=== PATIENT | female | born 1970 | race Caucasian/White ===

== ENCOUNTER → 2016-08-02 | Outpatient (CLI) | payer OTHER | LOC: MC.RAD 13:51 | DX: Z12.31 Encounter for screening mammogram for malignant neoplasm of breast (principal); N63 Unspecified lump in breast; N64.89 Other specified disorders of breast ==

== ENCOUNTER → 2016-08-11 | Outpatient (CLI) | payer OTHER | LOC: MC.RAD 13:49 | DX: N63 Unspecified lump in breast (principal); R92.2 Inconclusive mammogram ==

== ENCOUNTER → 2016-08-12 | Outpatient (CLI) | payer OTHER | LOC: MC.RAD 12:47 | DX: N63 Unspecified lump in breast (principal); N64.89 Other specified disorders of breast ==

== ENCOUNTER → 2019-06-10 | Outpatient (CLI) | payer OTHER | LOC: MC.RAD 07:30 | DX: Z12.31 Encounter for screening mammogram for malignant neoplasm of breast (principal) ==

== ENCOUNTER → 2020-11-16 | Outpatient (CLI) | payer OTHER | LOC: MC.RAD 07:39 | DX: Z12.31 Encounter for screening mammogram for malignant neoplasm of breast (principal) ==

== ENCOUNTER 2021-06-17 08:24 | Day surgery (SDC) | payer OTHER ==
[~2021-06-17] VITALS: Ht 162.6 cm; Wt 103.2 kg
[2021-06-17] MEDS ORDERED: LYRICA 150MG C150 MG PO (08:49)
[2021-06-17] MEDS ORDERED: DESYREL 50MG50 MG PO (08:49)
[2021-06-17] MEDS ORDERED: LIPITOR 40MG TA40 MG PO (08:50)
[2021-06-17 09:10] VITALS: BP 119/53; PULSE 91; TEMP 98.1
[2021-06-17 10:35] VITALS: BP 120/50; PULSE 82; TEMP 97
[2021-06-17 10:45] VITALS: PULSE 69
--- NOTE | 2021-06-17 10:45 | NUR ---
Pt took BP cuff off due to discomfort. Next BP obtained on right arm instead.
[2021-06-17 11:00] VITALS: BP 134/67; PULSE 64
--- NOTE | 2021-06-17 11:17 | NUR ---
Pts VS remain stable.-see flowsheet. Tolerated water and saltine crackers. Dr Fontenot in to visit with pt and pts , Brandon, post procedure. IV removed, pressure dressing applied and catheter tip intact. Pt dressed independently. Discharge teaching completed, pt and verbalized understanding. Pt taken via wheelchair to private vehicle for dc home with Brandon driving.
== END 2021-06-17 11:17 | disposition home or self-care (01) ==
LOC: SDCO 08:24
DX: Z12.11 Encounter for screening for malignant neoplasm of colon (principal); F17.210 Nicotine dependence, cigarettes, uncomplicated
CPT/HCPCS: J2704

== ENCOUNTER → 2023-10-04 | Outpatient (CLI) | payer OTHER ==
[~2023-10-04] MED LIST: DESYREL 50MG50 MG PO; LIPITOR 40MG TA40 MG PO; LYRICA 150MG C150 MG PO
== END ==
LOC: MC.RAD 08:43
DX: Z12.31 Encounter for screening mammogram for malignant neoplasm of breast (principal)